=== PATIENT | male | born 1985 | race Caucasian/White ===

== ENCOUNTER 2017-06-05 18:02 | Inpatient (IN) | payer MEDICAID, SELFPAY ==
[~2017-06-05] VITALS: Ht 180.3 cm; Wt 76.7 kg
[~2017-06-05 18:02] MED LIST: NOCURR
[2017-06-05] MEDS ORDERED: LEVE500T53 PO ×2 (18:10)
[2017-06-05 18:40] LABS: BASOPHILS % (AUTO) 1.3 % (0.0-2.0); HEMATOCRIT 37.3 % (41-53); HEMOGLOBIN 12.7 g/dL (13.5-17.5); LYMPHOCYTES # (AUTO) 2.6 K/uL (1.0-4.8); MEAN CORPUSCULAR HEMOGLOBIN 31.5 pg (26.0-34.0); MEAN CORPUSCULAR VOLUME 93 fL (80-100); MONOCYTES # (AUTO) 0.8 K/uL (0.1-1.0); MONOCYTES % (AUTO) 13.8 % (2.0-9.0); NEUTROPHILS # (AUTO) 2.3 K/uL (1.8-7.7); NEUTROPHILS % (AUTO) 38.9 % (40.0-70.0); PLATELET COUNT (AUTO) 206 K/uL (150-450); RED BLOOD CELL COUNT(AUTO) 4.03 MIL/uL (4.50-5.90); RED CELL DISTRIBUTION WIDTH 14.2 % (11.5-14.5)
[2017-06-05 18:59] LABS: ANION GAP 9 mmol/L (8-16); CALCIUM, TOTAL 8.5 mg/dL (8.8-10.5); CARBON DIOXIDE 29 mmol/L (22-29); CHLORIDE 103 mmol/L (98-107); CREATININE 0.87 mg/dL (0.60-1.30); GLOMERULAR FILTR. RATE CALC > 60 mL/min (>60); GLUCOSE,RANDOM 67 mg/dL (70-110); SODIUM SERUM 141 mmol/L (136-145); UREA NITROGEN, BLOOD 18 mg/dL (7-18)
[2017-06-05 19:03] LABS: ALANINE AMINOTRANSFERASE 38 U/L (12-78); ALBUMIN 3.3 g/dL (3.4-5.0); ALKALINE PHOSPHATASE 36 U/L (46-116); ASPARTATE AMINOTRANSFERASE 24 U/L (15-37); BILIRUBIN,TOTAL 0.6 mg/dL (0.1-1.0)
[2017-06-05] MEDS ORDERED: DiphenhydrAMINE HCL 50 MG CAPSULE PO ONE (20:00)
[2017-06-05] MEDS ORDERED: ZOLPIDEM TARTRATE 10 MG TABLET PO PRN (20:00)
[2017-06-05] MEDS ORDERED: HALOPERIDOL 5 MG TABLET PO PRN (20:00)
[2017-06-05 20:30] LABS: AMPHET/METH SCREEN,URINE POSITIVE (NEGATIVE); BARBITURATE SCREEN, URINE NEGATIVE (NEGATIVE); BENZODIAZEPINES SCREEN,URINE NEGATIVE (NEGATIVE); CANNABINOID SCREEN,URINE POSITIVE (NEGATIVE); COCAINE SCREEN,URINE NEGATIVE (NEGATIVE); METHADONE SCREEN, URINE NEGATIVE (NEGATIVE); OPIATE SCREEN,URINE NEGATIVE (NEGATIVE)
[2017-06-05 20:34] LABS: PHENCYCLIDINE SCREEN,URINE NEGATIVE (NEGATIVE)
[2017-06-05 21:30] VITALS: BP 107/61
[2017-06-05] MEDS: LevETIRAcetam 500 MG TABLET PO SCH (22:55)
[2017-06-06 06:49] LABS: CHOL/HDL RATIO 2.6 (4.2-7.3)
[2017-06-06] MEDS: LevETIRAcetam 500 MG TABLET PO SCH ×2 (08:57→20:36)
[2017-06-06 09:56] VITALS: BP 99/58
[2017-06-06 16:49] VITALS: BP 104/64
[2017-06-07 08:15] VITALS: BP 106/59
[2017-06-07] MEDS: LevETIRAcetam 500 MG TABLET PO SCH ×2 (08:55→20:16)
[2017-06-07] MEDS: CITALOPRAM HYDROBROMIDE 20 MG TABLET PO SCH (08:55)
[2017-06-07 18:21] VITALS: BP 113/65
[2017-06-07] MEDS: LORazepam 2 MG TABLET PO PRN (20:16)
[2017-06-08 08:15] VITALS: BP 104/62
[2017-06-08] MEDS: LevETIRAcetam 500 MG TABLET PO SCH ×2 (09:18→20:37)
[2017-06-08] MEDS: CITALOPRAM HYDROBROMIDE 20 MG TABLET PO SCH (09:18)
[2017-06-08] MEDS: LORazepam 2 MG TABLET PO PRN ×2 (09:21→16:15)
[2017-06-08 18:29] VITALS: BP 112/73
[2017-06-09] MEDS: CITALOPRAM HYDROBROMIDE 20 MG TABLET PO SCH (09:16)
[2017-06-09] MEDS: LevETIRAcetam 500 MG TABLET PO SCH ×2 (09:16→20:22)
[2017-06-09] MEDS: LORazepam 2 MG TABLET PO PRN ×3 (09:18→19:21)
[2017-06-09 09:58] VITALS: BP 103/2
[2017-06-09 19:29] VITALS: BP 114/79
[2017-06-10] MEDS: CITALOPRAM HYDROBROMIDE 20 MG TABLET PO SCH (08:59)
[2017-06-10] MEDS: LevETIRAcetam 500 MG TABLET PO SCH ×2 (08:59→20:19)
[2017-06-10] MEDS: LORazepam 2 MG TABLET PO PRN ×3 (09:01→18:39)
[2017-06-10 09:09] VITALS: BP 95/65
[2017-06-10 21:17] VITALS: BP 110/71
[2017-06-11] MEDS ORDERED: CITA20TA9 PO (08:10)
[2017-06-11] MEDS: CITALOPRAM HYDROBROMIDE 20 MG TABLET PO SCH (08:59)
[2017-06-11] MEDS: LORazepam 2 MG TABLET PO PRN (08:59)
[2017-06-11] MEDS: LevETIRAcetam 500 MG TABLET PO SCH (08:59)
== END 2017-06-11 10:30 | disposition home or self-care (01) | DRG 750 ==
LOC: EMS 18:03 → 3EI 20:30
PROVIDERS: ADMIT Psychiatry & Neurology Psychiatry; ATTEND Psychiatry & Neurology Psychiatry
DX: F25.9 Schizoaffective disorder, unspecified (principal); R56.9 Unspecified convulsions; R45.851 Suicidal ideations; F32.9 Major depressive disorder, single episode, unspecified; D64.9 Anemia, unspecified; F12.90 Cannabis use, unspecified, uncomplicated; F11.90 Opioid use, unspecified, uncomplicated; F15.90 Other stimulant use, unspecified, uncomplicated; F17.200 Nicotine dependence, unspecified, uncomplicated
CPT/HCPCS: 99285; 99406; G0480

== ENCOUNTER 2017-08-02 19:46 | Inpatient (IN) | payer MEDICAID ==
[~2017-08-02] VITALS: Ht 180.3 cm; Wt 75.5 kg
[~2017-08-02 19:46] MED LIST changes: +DIVA500T35 PO; +LEVE500T53 PO; +LITH300C3 PO; -NOCURR
[2017-08-02 20:18] LABS: AMPHET/METH SCREEN,URINE POSITIVE (NEGATIVE); BARBITURATE SCREEN, URINE NEGATIVE (NEGATIVE); BENZODIAZEPINES SCREEN,URINE NEGATIVE (NEGATIVE); CANNABINOID SCREEN,URINE POSITIVE (NEGATIVE); COCAINE SCREEN,URINE NEGATIVE (NEGATIVE); METHADONE SCREEN, URINE NEGATIVE (NEGATIVE); OPIATE SCREEN,URINE NEGATIVE (NEGATIVE)
[2017-08-02 20:21] LABS: PHENCYCLIDINE SCREEN,URINE NEGATIVE (NEGATIVE)
[2017-08-02 20:21] LABS: BASOPHILS % (AUTO) 0.9 % (0.0-2.0); EOSINOPHILS % (AUTO) 0.7 % (1.0-6.0); HEMATOCRIT 39.8 % (41-53); HEMOGLOBIN 13.7 g/dL (13.5-17.5); LYMPHOCYTES # (AUTO) 2.1 K/uL (1.0-4.8); LYMPHOCYTES % (AUTO) 27.7 % (22.0-44.0); MEAN CORPUSCULAR HGB CONC 34.5 G/dL (31.0-37.0); MEAN CORPUSCULAR VOLUME 90 fL (80-100); MONOCYTES % (AUTO) 13.9 % (2.0-9.0); NEUTROPHILS # (AUTO) 4.2 K/uL (1.8-7.7); NEUTROPHILS % (AUTO) 56.8 % (40.0-70.0); PLATELET COUNT (AUTO) 173 K/uL (150-450); RED BLOOD CELL COUNT(AUTO) 4.43 MIL/uL (4.50-5.90); RED CELL DISTRIBUTION WIDTH 14.2 % (11.5-14.5)
[2017-08-02 20:29] LABS: ANION GAP 6 mmol/L (8-16); CALCIUM, TOTAL 9.1 mg/dL (8.8-10.5); CARBON DIOXIDE 27 mmol/L (22-29); CHLORIDE 102 mmol/L (98-107); CREATININE 1.04 mg/dL (0.60-1.30); GLOMERULAR FILTR. RATE CALC > 60 mL/min (>60); GLUCOSE,RANDOM 98 mg/dL (70-110); POTASSIUM 3.9 mmol/L (3.5-5.1); SODIUM SERUM 135 mmol/L (136-145); UREA NITROGEN, BLOOD 16 mg/dL (7-18)
[2017-08-02 20:35] LABS: ALANINE AMINOTRANSFERASE 230 U/L (12-78); ALKALINE PHOSPHATASE 45 U/L (46-116); ASPARTATE AMINOTRANSFERASE 93 U/L (15-37); BILIRUBIN,TOTAL 0.7 mg/dL (0.1-1.0); TOTAL PROTEIN, SERUM 7.8 g/dL (6.4-8.2)
[2017-08-02 21:20] LABS: LITHIUM < 0.20 mmol/L (0.60-1.20)
[2017-08-02 21:29] LABS: VALPROIC ACID 3 mcg/mL (50-100)
[2017-08-02] MEDS ORDERED: LevETIRAcetam 500 MG TABLET PO ONE (21:30)
[2017-08-02] MEDS ORDERED: LORazepam 2 MG TABLET PO ONE (21:30)
[2017-08-02] MEDS ORDERED: HALOPERIDOL 5 MG TABLET PO PRN (21:45)
[2017-08-03] MEDS: ZOLPIDEM TARTRATE 10 MG TABLET PO PRN ×2 (01:08→20:52)
[2017-08-03 02:30] VITALS: BP 138/79
[2017-08-03] MEDS: LORazepam 2 MG TABLET PO PRN ×3 (07:22→16:50)
[2017-08-03 08:30] VITALS: BP 120/73
[2017-08-03] MEDS: DIVALPROEX SODIUM 500 MG DR TABLET PO SCH ×2 (10:37→16:26)
[2017-08-03] MEDS: LevETIRAcetam 500 MG TABLET PO SCH ×2 (10:37→16:26)
[2017-08-04] MEDS: DIVALPROEX SODIUM 500 MG DR TABLET PO SCH ×2 (08:37→18:07)
[2017-08-04] MEDS: LevETIRAcetam 500 MG TABLET PO SCH ×2 (08:37→18:08)
[2017-08-04] MEDS: OLANZapine 10 MG TABLET PO SCH ×2 (08:38→18:08)
[2017-08-04] MEDS: LORazepam 2 MG TABLET PO PRN ×2 (08:38→21:33)
[2017-08-04 10:04] VITALS: BP 117/69
[2017-08-05] MEDS: LevETIRAcetam 500 MG TABLET PO SCH ×2 (08:11→17:08)
[2017-08-05] MEDS: OLANZapine 10 MG TABLET PO SCH ×2 (08:11→17:08)
[2017-08-05] MEDS: CEPHALEXIN MONOHYDRATE 500 MG CAPSULE PO SCH ×3 (08:11→17:08)
[2017-08-05] MEDS: DIVALPROEX SODIUM 500 MG DR TABLET PO SCH ×2 (08:11→17:08)
[2017-08-05] MEDS: LORazepam 2 MG TABLET PO PRN (08:12)
[2017-08-05 10:26] VITALS: BP 102/64
[2017-08-06] MEDS: CEPHALEXIN MONOHYDRATE 500 MG CAPSULE PO SCH ×3 (09:21→16:55)
[2017-08-06] MEDS: LevETIRAcetam 500 MG TABLET PO SCH ×2 (09:21→16:55)
[2017-08-06] MEDS: LORazepam 2 MG TABLET PO PRN ×2 (09:21→17:58)
[2017-08-06] MEDS: DIVALPROEX SODIUM 500 MG DR TABLET PO SCH ×2 (09:21→16:55)
[2017-08-06] MEDS: OLANZapine 10 MG TABLET PO SCH ×2 (09:22→16:55)
[2017-08-06 09:55] VITALS: BP 102/56
[2017-08-06 16:00] VITALS: BP 99/56
[2017-08-07 09:05] VITALS: BP 119/68
[2017-08-07] MEDS: OLANZapine 10 MG TABLET PO SCH ×2 (11:01→21:00)
[2017-08-07] MEDS: LevETIRAcetam 500 MG TABLET PO SCH ×2 (11:01→17:00)
[2017-08-07] MEDS: CEPHALEXIN MONOHYDRATE 500 MG CAPSULE PO SCH ×3 (11:01→17:00)
[2017-08-07] MEDS: DIVALPROEX SODIUM 500 MG DR TABLET PO SCH ×2 (11:01→17:00)
[2017-08-07] MEDS: LORazepam 2 MG TABLET PO PRN (16:23)
[2017-08-07 21:36] VITALS: BP 122/70
[2017-08-08] MEDS: LevETIRAcetam 500 MG TABLET PO SCH ×2 (08:41→17:30)
[2017-08-08] MEDS: CEPHALEXIN MONOHYDRATE 500 MG CAPSULE PO SCH ×3 (08:41→17:00)
[2017-08-08] MEDS: DIVALPROEX SODIUM 500 MG DR TABLET PO SCH ×2 (08:41→17:00)
[2017-08-08] MEDS: OLANZapine 5 MG TABLET PO SCH ×2 (08:41→08:44)
[2017-08-08] MEDS: LORazepam 2 MG TABLET PO PRN ×3 (08:47→20:12)
[2017-08-08 09:15] VITALS: BP 111/70
[2017-08-08 17:30] VITALS: BP 134/80
[2017-08-08] MEDS: OLANZapine 10 MG TABLET PO SCH (21:00)
[2017-08-08] MEDS: ZOLPIDEM TARTRATE 10 MG TABLET PO PRN (21:22)
[2017-08-09] MEDS ORDERED: OLAN10TA3 PO (06:42)
[2017-08-09] MEDS ORDERED: OLAN5TAB2 PO (06:42)
[2017-08-09] MEDS ORDERED: CEPH500 PO (06:44)
[2017-08-09] MEDS: LevETIRAcetam 500 MG TABLET PO SCH (09:10)
[2017-08-09] MEDS: CEPHALEXIN MONOHYDRATE 500 MG CAPSULE PO SCH ×2 (09:10→13:00)
[2017-08-09] MEDS: OLANZapine 5 MG TABLET PO SCH (09:10)
[2017-08-09] MEDS: DIVALPROEX SODIUM 500 MG DR TABLET PO SCH (09:10)
[2017-08-09 09:17] VITALS: BP 113/74
== END 2017-08-09 10:30 | disposition home or self-care (01) | DRG 750 ==
LOC: EMS 19:47 → 3EI 21:30
DX: F25.1 Schizoaffective disorder, depressive type (principal); R45.851 Suicidal ideations; G40.909 Epilepsy, unspecified, not intractable, without status epilepticus; F12.10 Cannabis abuse, uncomplicated; F15.10 Other stimulant abuse, uncomplicated; F17.210 Nicotine dependence, cigarettes, uncomplicated; L03.113 Cellulitis of right upper limb; Z59.0 Homelessness; Z79.899 Other long term (current) drug therapy; Z88.8 Allergy status to other drugs, medicaments and biological substances; Z91.5 Personal history of self-harm
CPT/HCPCS: 99285; G0480

== ENCOUNTER 2017-08-16 14:01 | Emergency (ER) | payer MEDICAID ==
[~2017-08-16] VITALS: Ht 180.3 cm; Wt 77.3 kg
[~2017-08-16 14:01] MED LIST changes: +CEPH500 PO; -LITH300C3 PO; +OLAN10TA3 PO; +OLAN5TAB2 PO
[2017-08-16] MEDS ORDERED: HALOPERIDOL 5 MG TABLET PO ONE (14:30)
[2017-08-16] MEDS ORDERED: LIDOCAINE HCL 1% 10 ML VIAL INJ ONE (14:30)
[2017-08-16] MEDS ORDERED: LORazepam 2 MG TABLET PO ONE (14:30)
[2017-08-16] MEDS ORDERED: PERTUSS(ACELL),DIPH,TET VAC/PF 0.5 ML VIAL IM ONE (14:30)
[2017-08-16 14:54] LABS: BASOPHILS % (AUTO) 0.7 % (0.0-2.0); EOSINOPHILS % (AUTO) 0.2 % (1.0-6.0); HEMATOCRIT 35.1 % (41-53); HEMOGLOBIN 12.4 g/dL (13.5-17.5); LYMPHOCYTES # (AUTO) 1.7 K/uL (1.0-4.8); LYMPHOCYTES % (AUTO) 20.5 % (22.0-44.0); MEAN CORPUSCULAR HEMOGLOBIN 31.4 pg (26.0-34.0); MEAN CORPUSCULAR HGB CONC 35.3 G/dL (31.0-37.0); MEAN CORPUSCULAR VOLUME 89 fL (80-100); MONOCYTES # (AUTO) 1.1 K/uL (0.1-1.0); MONOCYTES % (AUTO) 13.2 % (2.0-9.0); NEUTROPHILS # (AUTO) 5.3 K/uL (1.8-7.7); NEUTROPHILS % (AUTO) 65.4 % (40.0-70.0); PLATELET COUNT (AUTO) 181 K/uL (150-450); RED BLOOD CELL COUNT(AUTO) 3.94 MIL/uL (4.50-5.90)
[2017-08-16 15:08] LABS: ANION GAP 11 mmol/L (8-16); CALCIUM, TOTAL 8.3 mg/dL (8.8-10.5); CARBON DIOXIDE 25 mmol/L (22-29); CHLORIDE 105 mmol/L (98-107); CREATININE 1.09 mg/dL (0.60-1.30); GLOMERULAR FILTR. RATE CALC > 60 mL/min (>60); GLUCOSE,RANDOM 94 mg/dL (70-110); POTASSIUM 3.9 mmol/L (3.5-5.1); SODIUM SERUM 141 mmol/L (136-145); UREA NITROGEN, BLOOD 14 mg/dL (7-18)
[2017-08-16 15:13] LABS: ALANINE AMINOTRANSFERASE 190 U/L (12-78); ALBUMIN 3.8 g/dL (3.4-5.0); ALKALINE PHOSPHATASE 42 U/L (46-116); ASPARTATE AMINOTRANSFERASE 112 U/L (15-37); BILIRUBIN,TOTAL 1.7 mg/dL (0.1-1.0); TOTAL PROTEIN, SERUM 7.5 g/dL (6.4-8.2)
[2017-08-16] MEDS ORDERED: BACITRACIN 0.9 GM PACKET OINTMENT TP ONE (17:45)
[2017-08-16 19:21] VITALS: BP 116/74
== END 2017-08-16 19:23 | disposition home or self-care (01) ==
LOC: EMS 14:02
DX: S51.812A Laceration without foreign body of left forearm, initial encounter (principal); F31.9 Bipolar disorder, unspecified; F12.90 Cannabis use, unspecified, uncomplicated; F15.90 Other stimulant use, unspecified, uncomplicated; F17.210 Nicotine dependence, cigarettes, uncomplicated; Z88.8 Allergy status to other drugs, medicaments and biological substances; X78.9XXA Intentional self-harm by unspecified sharp object, initial encounter; Y93.89 Activity, other specified; Y92.89 Other specified places as the place of occurrence of the external cause; Y99.8 Other external cause status
CPT/HCPCS: 12002; 36415; 80053; 85025; 90471; 90715; 99284; G0480; J3490

== ENCOUNTER 2021-03-09 09:45 | Emergency (ER) | payer MEDICAID ==
[~2021-03-09] VITALS: Ht 183.5 cm; Wt 77.3 kg
[~2021-03-09 09:45] MED LIST changes: +CEPH-582 PO; -CEPH500 PO; +CLIN300C3 PO; +DIVA-112 PO; -DIVA500T35 PO; +LEVE500T20 PO; -LEVE500T53 PO; -OLAN10TA3 PO; +OLAN10TA74 PO; -OLAN5TAB2 PO; +OLAN5TAB52 PO
[2021-03-09] MEDS ORDERED: LORazepam 2 MG/ML VIAL IM ONE (10:15)
[2021-03-09] MEDS ORDERED: HALOPERIDOL LACTATE 5 MG/ML VIAL IM ONE (10:15)
[2021-03-09] MEDS ORDERED: DiphenhydrAMINE HCL 50 MG/ML VIAL IM ONE (10:15)
[2021-03-09 10:27] LABS: BASOPHILS % (AUTO) 0.7 % (0.0-2.0); EOSINOPHILS % (AUTO) 0.4 % (1.0-6.0); HEMOGLOBIN 13.8 g/dL (13.5-17.5); LYMPHOCYTES # (AUTO) 4.4 K/uL (1.0-4.8); LYMPHOCYTES % (AUTO) 38.1 % (22.0-44.0); MEAN CORPUSCULAR HEMOGLOBIN 32.2 pg (26.0-34.0); MEAN CORPUSCULAR HGB CONC 34.6 G/dL (31.0-37.0); MEAN CORPUSCULAR VOLUME 93 fL (80-100); MONOCYTES # (AUTO) 1.7 K/uL (0.1-1.0); MONOCYTES % (AUTO) 14.7 % (2.0-9.0); NEUTROPHILS # (AUTO) 5.4 K/uL (1.8-7.7); NEUTROPHILS % (AUTO) 46.1 % (40.0-70.0); PLATELET COUNT (AUTO) 184 K/uL (150-450); RED BLOOD CELL COUNT(AUTO) 4.29 MIL/uL (4.50-5.90); RED CELL DISTRIBUTION WIDTH 13.8 % (11.5-14.5)
[2021-03-09 10:34] LABS: ANION GAP 11 mmol/L (8-16); CARBON DIOXIDE 25 mmol/L (22-29); CHLORIDE 102 mmol/L (98-107); CREATININE 1.65 mg/dL (0.60-1.30); GLOMERULAR FILTR. RATE CALC 47 mL/min (>60); GLUCOSE,RANDOM 96 mg/dL (70-110); SODIUM SERUM 138 mmol/L (136-145); UREA NITROGEN, BLOOD 38 mg/dL (7-18)
[2021-03-09] MEDS ORDERED: HALOPERIDOL 5 MG TABLET PO ONE (10:45)
[2021-03-09] MEDS ORDERED: DiphenhydrAMINE HCL 50 MG CAPSULE PO ONE (10:45)
[2021-03-09] MEDS ORDERED: LORazepam 2 MG TABLET PO ONE (10:45)
[2021-03-09 10:48] LABS: ALANINE AMINOTRANSFERASE 62 U/L (12-78); ALBUMIN 4.4 g/dL (3.4-5.0); ALKALINE PHOSPHATASE 38 U/L (46-116); ASPARTATE AMINOTRANSFERASE 108 U/L (15-37); BILIRUBIN,TOTAL 3.2 mg/dL (0.1-1.0)
[2021-03-09 10:49] LABS: VALPROIC ACID < 3 mcg/mL (50-100)
[2021-03-09 11:44] LABS: AMPHET/METH SCREEN,URINE POSITIVE (NEGATIVE); BARBITURATE SCREEN, URINE NEGATIVE (NEGATIVE); BENZODIAZEPINES SCREEN,URINE NEGATIVE (NEGATIVE); CANNABINOID SCREEN,URINE POSITIVE (NEGATIVE); COCAINE SCREEN,URINE NEGATIVE (NEGATIVE); METHADONE SCREEN, URINE NEGATIVE (NEGATIVE); OPIATE SCREEN,URINE POSITIVE (NEGATIVE); PHENCYCLIDINE SCREEN,URINE NEGATIVE (NEGATIVE)
[2021-03-09 12:20] LABS: COVID AG,FIA SOURCE NASOPHARYNGEAL
[2021-03-09 18:02] VITALS: BP 104/60
== END 2021-03-09 19:33 | disposition home or self-care (01) ==
LOC: EMS 09:48
DX: F15.10 Other stimulant abuse, uncomplicated (principal); F11.10 Opioid abuse, uncomplicated; F31.9 Bipolar disorder, unspecified; F17.210 Nicotine dependence, cigarettes, uncomplicated; Z20.822 Contact with and (suspected) exposure to COVID-19
CPT/HCPCS: 36415; 80053; 80164; 80307; 85025; 87426; 99284; G0480; J1200; J1630; J2060; 99285

== ENCOUNTER 2021-08-22 20:20 | Inpatient (IN) | payer MEDICAID ==
[~2021-08-22] VITALS: Ht 180.3 cm; Wt 79.3 kg
[~2021-08-22 20:20] MED LIST changes: -CLIN300C3 PO; +CLIN300C58 PO
[2021-08-22 22:01] LABS: BASOPHILS % (AUTO) 0.3 % (0.0-2.0); EOSINOPHILS % (AUTO) 0.5 % (1.0-6.0); HEMATOCRIT 39.9 % (41-53); HEMOGLOBIN 13.3 g/dL (13.5-17.5); LYMPHOCYTES # (AUTO) 3.7 K/uL (1.0-4.8); MEAN CORPUSCULAR HGB CONC 33.3 G/dL (31.0-37.0); MEAN CORPUSCULAR VOLUME 90 fL (80-100); MONOCYTES # (AUTO) 0.9 K/uL (0.1-1.0); MONOCYTES % (AUTO) 7.7 % (2.0-9.0); NEUTROPHILS # (AUTO) 6.6 K/uL (1.8-7.7); NEUTROPHILS % (AUTO) 58.5 % (40.0-70.0); PLATELET COUNT (AUTO) 260 K/uL (150-450); RED BLOOD CELL COUNT(AUTO) 4.42 MIL/uL (4.50-5.90); RED CELL DISTRIBUTION WIDTH 14.1 % (11.5-14.5)
[2021-08-22 22:11] LABS: ANION GAP 11 mmol/L (8-16); CALCIUM, TOTAL 9.2 mg/dL (8.8-10.5); CARBON DIOXIDE 24 mmol/L (22-29); CHLORIDE 98 mmol/L (98-107); CREATININE 1.18 mg/dL (0.60-1.30); GLOMERULAR FILTR. RATE CALC > 60 mL/min (>60); GLUCOSE,RANDOM 105 mg/dL (70-110); POTASSIUM 3.8 mmol/L (3.5-5.1); SODIUM SERUM 133 mmol/L (136-145); UREA NITROGEN, BLOOD 18 mg/dL (7-18)
[2021-08-22 22:17] LABS: ALANINE AMINOTRANSFERASE 24 U/L (12-78); ALBUMIN 4.2 g/dL (3.4-5.0); ALKALINE PHOSPHATASE 54 U/L (46-116); ASPARTATE AMINOTRANSFERASE 31 U/L (15-37); BILIRUBIN,TOTAL 3.3 mg/dL (0.1-1.0); TOTAL PROTEIN, SERUM 8.3 g/dL (6.4-8.2)
[2021-08-22 22:35] LABS: AMPHET/METH SCREEN,URINE POSITIVE (NEGATIVE); BARBITURATE SCREEN, URINE NEGATIVE (NEGATIVE); BENZODIAZEPINES SCREEN,URINE NEGATIVE (NEGATIVE); CANNABINOID SCREEN,URINE POSITIVE (NEGATIVE); COCAINE SCREEN,URINE NEGATIVE (NEGATIVE); METHADONE SCREEN, URINE NEGATIVE (NEGATIVE); OPIATE SCREEN,URINE NEGATIVE (NEGATIVE); PHENCYCLIDINE SCREEN,URINE NEGATIVE (NEGATIVE)
[2021-08-22] MEDS ORDERED: ZOLPIDEM TARTRATE 10 MG TABLET PO PRN (23:00)
[2021-08-22] MEDS ORDERED: HALOPERIDOL 5 MG TABLET PO ONE (23:15)
[2021-08-22] MEDS ORDERED: ACETAMINOPHEN 500 MG TABLET PO ONE (23:15)
[2021-08-22] MEDS ORDERED: LORazepam 2 MG TABLET PO ONE (23:15)
[2021-08-23] VITALS (12 sets, daily range): BP systolic 81–117; BP diastolic 42–78
[2021-08-23 00:27] LABS: COVID AG,FIA SOURCE NASOPHARYNGEAL
[2021-08-23 01:06] LABS: APPEARANCE,URINE CLEAR (CLEAR); BILIRUBIN,URINE NEGATIVE (NEGATIVE); GLUCOSE, URINE (UA) NEGATIVE (NEGATIVE); KETONES,URINE NEGATIVE (NEGATIVE); LEUKOCYTE ESTERASE ,URINE NEGATIVE (NEGATIVE); NITRATE,URINE NEGATIVE (NEGATIVE); OCCULT BLOOD,URINE NEGATIVE (NEGATIVE); PH,URINE 5.5 (5.0-8.0); PROTEIN,URINE NEGATIVE (NEGATIVE); SPECIFIC GRAVITIY, URINE 1.006 (1.003-1.030); UROBILINOGEN,URINE <=1.0 mg/dL (<=1.0)
[2021-08-23] MEDS: LORazepam 2 MG TABLET PO PRN ×2 (02:07→08:04)
[2021-08-23] MEDS ORDERED: ALBUTEROL SULFATE HFA 90 MCG/PUFF 8 GM INHALER IH PRN (06:30)
[2021-08-23] MEDS ORDERED: PETROLATUM,WHITE 28 GM JELLY TP PRN (06:30)
[2021-08-23] MEDS ORDERED: MAG HYDROX/AL HYDROX/SIMETH ES 30 ML SUSPENSION UDCUP PO PRN ×2 (06:30→11:00)
[2021-08-23] MEDS ORDERED: DOCUSATE SODIUM 100 MG CAPSULE PO PRN (06:30)
[2021-08-23] MEDS ORDERED: GuaiFENesin/D-METHORPHAN [SUGAR-FREE] 200-20MG/10 ML SYRUP UDCUP PO PRN ×2 (06:30→11:15)
[2021-08-23] MEDS ORDERED: LOPERAMIDE HCL 2 MG CAPSULE PO PRN ×2 (06:30→11:15)
[2021-08-23] MEDS ORDERED: ACETAMINOPHEN 325 MG TABLET PO PRN (06:30)
[2021-08-23] MEDS ORDERED: ONDANSETRON HCL 4 MG TABLET PO PRN (06:30)
[2021-08-23] MEDS ORDERED: CloNIDine HCL 0.1 MG TABLET PO PRN ×2 (06:30→11:00)
[2021-08-23] MEDS ORDERED: MAGNESIUM HYDROXIDE SUSPENSION 30 ML UDCUP PO PRN (06:30)
[2021-08-23] MEDS ORDERED: IBUPROFEN 400 MG TABLET PO PRN (06:30)
[2021-08-23] MEDS ORDERED: NICOTINE 14 MG/24 HOUR PATCH TD PRN (06:30)
[2021-08-23] MEDS: LevETIRAcetam 500 MG TABLET PO SCH ×2 (08:05→16:39)
[2021-08-23] MEDS: HALOPERIDOL 5 MG TABLET PO PRN (08:06)
[2021-08-23] MEDS ORDERED: HydrOXYzine PAMOATE 50 MG CAPSULE PO PRN ×2 (11:00→11:15)
[2021-08-23] MEDS ORDERED: IBUPROFEN 600 MG TABLET PO PRN (11:00)
[2021-08-23] MEDS ORDERED: CYANOCOBALAMIN 1,000 MCG/ML VIAL IM ONE (11:15)
[2021-08-23] MEDS: CloNIDine HCL 0.1 MG TABLET PO SCH ×3 (12:00→21:16)
[2021-08-23] MEDS: THIAMINE 100 MG TABLET PO SCH ×2 (12:09→16:39)
[2021-08-23] MEDS: FOLIC ACID 1 MG TABLET PO SCH (12:10)
[2021-08-23] MEDS: MULTIVITAMINS WITH MINERALS, THERAPEUTIC TABLET PO SCH (12:10)
[2021-08-23] MEDS: DIVALPROEX SODIUM 500 MG DR TABLET PO SCH (16:39)
[2021-08-23] MEDS: OLANZapine 7.5 MG TABLET PO SCH (21:00)
[2021-08-24 05:44] VITALS: BP 90/70
[2021-08-24 08:03] VITALS: BP 102/62
[2021-08-24] MEDS: THIAMINE 100 MG TABLET PO SCH ×2 (08:20→16:06)
[2021-08-24] MEDS: MULTIVITAMINS WITH MINERALS, THERAPEUTIC TABLET PO SCH (08:20)
[2021-08-24] MEDS: DIVALPROEX SODIUM 500 MG DR TABLET PO SCH ×2 (08:20→16:05)
[2021-08-24] MEDS: LevETIRAcetam 500 MG TABLET PO SCH ×2 (08:20→16:06)
[2021-08-24] MEDS: LORazepam 2 MG TABLET PO PRN (08:20)
[2021-08-24] MEDS: FOLIC ACID 1 MG TABLET PO SCH (08:21)
[2021-08-24 12:10] VITALS: BP 92/57
[2021-08-24 16:07] VITALS: BP 107/73
[2021-08-24] MEDS: OLANZapine 7.5 MG TABLET PO SCH (20:09)
[2021-08-25 08:00] VITALS: BP 95/58
[2021-08-25] MEDS: FOLIC ACID 1 MG TABLET PO SCH (09:00)
[2021-08-25] MEDS: THIAMINE 100 MG TABLET PO SCH ×2 (09:00→16:32)
[2021-08-25] MEDS: DIVALPROEX SODIUM 500 MG DR TABLET PO SCH ×2 (09:00→16:32)
[2021-08-25] MEDS: LevETIRAcetam 500 MG TABLET PO SCH ×2 (09:00→16:32)
[2021-08-25] MEDS: MULTIVITAMINS WITH MINERALS, THERAPEUTIC TABLET PO SCH (09:00)
[2021-08-25 16:00] VITALS: BP 110/75
[2021-08-25] MEDS: LORazepam 2 MG TABLET PO PRN (16:14)
[2021-08-25] MEDS: HALOPERIDOL 5 MG TABLET PO PRN (16:14)
[2021-08-25] MEDS: OLANZapine 7.5 MG TABLET PO SCH (20:47)
[2021-08-26] MEDS: MULTIVITAMINS WITH MINERALS, THERAPEUTIC TABLET PO SCH (09:02)
[2021-08-26] MEDS: DIVALPROEX SODIUM 500 MG DR TABLET PO SCH ×2 (09:02→16:40)
[2021-08-26] MEDS: THIAMINE 100 MG TABLET PO SCH ×2 (09:03→16:40)
[2021-08-26] MEDS: FOLIC ACID 1 MG TABLET PO SCH (09:03)
[2021-08-26] MEDS: LevETIRAcetam 500 MG TABLET PO SCH ×2 (09:03→16:40)
[2021-08-26] MEDS: LORazepam 2 MG TABLET PO PRN ×2 (09:04→16:40)
[2021-08-26 15:39] VITALS: BP 110/59
[2021-08-26 16:00] VITALS: BP 119/79
[2021-08-26 16:40] VITALS: BP 119/79
[2021-08-26] MEDS: OLANZapine 7.5 MG TABLET PO SCH (20:34)
[2021-08-27] MEDS: LORazepam 2 MG TABLET PO PRN ×3 (05:16→16:48)
[2021-08-27] MEDS: HALOPERIDOL 5 MG TABLET PO PRN (05:21)
[2021-08-27 05:24] VITALS: BP 100/61
[2021-08-27 08:45] VITALS: BP 104/67
[2021-08-27] MEDS: THIAMINE 100 MG TABLET PO SCH ×2 (09:13→16:19)
[2021-08-27] MEDS: MULTIVITAMINS WITH MINERALS, THERAPEUTIC TABLET PO SCH (09:13)
[2021-08-27] MEDS: LevETIRAcetam 500 MG TABLET PO SCH ×2 (09:13→16:19)
[2021-08-27] MEDS: DIVALPROEX SODIUM 500 MG DR TABLET PO SCH ×2 (09:14→16:20)
[2021-08-27] MEDS: FOLIC ACID 1 MG TABLET PO SCH (09:14)
[2021-08-27 12:50] VITALS: BP 123/72
[2021-08-27 16:45] VITALS: BP 112/62
[2021-08-27] MEDS: OLANZapine 7.5 MG TABLET PO SCH (20:02)
[2021-08-27 21:45] VITALS: BP 111/77
[2021-08-28 08:00] VITALS: BP 118/80
[2021-08-28] MEDS: MULTIVITAMINS WITH MINERALS, THERAPEUTIC TABLET PO SCH (08:46)
[2021-08-28] MEDS: LevETIRAcetam 500 MG TABLET PO SCH (08:46)
[2021-08-28] MEDS: FOLIC ACID 1 MG TABLET PO SCH (08:46)
[2021-08-28] MEDS: DIVALPROEX SODIUM 500 MG DR TABLET PO SCH (08:46)
[2021-08-28] MEDS: THIAMINE 100 MG TABLET PO SCH (08:46)
[2021-08-28] MEDS ORDERED: LEVE500T20 PO (10:29)
[2021-08-28] MEDS ORDERED: OLAN7.5T22 PO (11:24)
[2021-08-28] MEDS ORDERED: DIVA-112 PO (11:24)
== END 2021-08-28 14:30 | disposition home or self-care (01) | DRG 751 ==
LOC: EMS 20:28 → 3EC 08-23 00:54 → 3EI 08-24 19:06
PROVIDERS: ADMIT Psychiatry & Neurology Child & Adolescent Psychiatry; ATTEND Psychiatry & Neurology Child & Adolescent Psychiatry
DX: F33.2 Major depressive disorder, recurrent severe without psychotic features (principal); E87.1 Hypo-osmolality and hyponatremia; F25.0 Schizoaffective disorder, bipolar type; G40.909 Epilepsy, unspecified, not intractable, without status epilepticus; E80.4 Gilbert syndrome; D72.829 Elevated white blood cell count, unspecified; F12.10 Cannabis abuse, uncomplicated; D64.9 Anemia, unspecified; Z20.822 Contact with and (suspected) exposure to COVID-19; F15.10 Other stimulant abuse, uncomplicated; F41.9 Anxiety disorder, unspecified; Z59.00 Homelessness unspecified; Z91.19 Patient's noncompliance with other medical treatment and regimen; Z87.891 Personal history of nicotine dependence; Z87.820 Personal history of traumatic brain injury; Z88.8 Allergy status to other drugs, medicaments and biological substances
CPT/HCPCS: 80053; 80164; 81003; 85025; 87081; 99285; G0480; J3420

== ENCOUNTER 2021-09-13 16:45 | Emergency (ER) | payer MEDICAID ==
[~2021-09-13] VITALS: Ht 180.3 cm; Wt 79.5 kg
[~2021-09-13 16:45] MED LIST changes: -CEPH-582 PO; -CLIN300C58 PO; -OLAN10TA74 PO; -OLAN5TAB52 PO; +OLAN7.5T22 PO
[2021-09-13 17:08] VITALS: BP 131/64
[2021-09-13] MEDS ORDERED: IBUPROFEN 600 MG TABLET PO ONE (17:30)
== END 2021-09-13 17:59 | disposition home or self-care (01) ==
LOC: EMS 16:47
DX: S90.822A Blister (nonthermal), left foot, initial encounter (principal); F32.9 Major depressive disorder, single episode, unspecified; F15.10 Other stimulant abuse, uncomplicated; F20.9 Schizophrenia, unspecified; F12.90 Cannabis use, unspecified, uncomplicated; F17.210 Nicotine dependence, cigarettes, uncomplicated; Z88.8 Allergy status to other drugs, medicaments and biological substances; Z79.899 Other long term (current) drug therapy; X58.XXXA Exposure to other specified factors, initial encounter; Y93.89 Activity, other specified; Y92.89 Other specified places as the place of occurrence of the external cause; Y99.8 Other external cause status
CPT/HCPCS: 99283

== ENCOUNTER 2021-09-14 04:30 | Emergency (ER) | payer MEDICAID ==
[~2021-09-14] VITALS: Ht 175.3 cm; Wt 70.5 kg
[2021-09-14 04:32] VITALS: BP 147/95
== END 2021-09-14 04:46 | disposition left against medical advice (07) ==
LOC: EMS 04:31
DX: M79.673 Pain in unspecified foot (principal); Z53.21 Procedure and treatment not carried out due to patient leaving prior to being seen by health care provider